=== PATIENT | male | born 1965 | race Caucasian/White ===

== ENCOUNTER 2023-06-19 12:49 | Day surgery (SDC) | payer OTHER ==
[~2023-06-19] VITALS: Ht 175.3 cm; Wt 93.2 kg
[2023-06-19 13:09] VITALS: BP 142/92
--- NOTE | 2023-06-19 14:30 | NUR ---
06/19/23 1430 Sheets,Consuelo 1420 PT ARRIVED TO PACU ON 2L VIA NC, PT WAKES EASILY ANS DENIES PAIN. PT IS ENCOURAGED TO PASS GAS NEEDED. PT EASLY FALLS BACK TO SLEEP AND SNORING NOTED. RESP EVEN AND UNLABORED.
[2023-06-19 14:59] VITALS: BP 135/93
--- NOTE | 2023-06-21 09:47 | OR ---
[facility] [address] [place], [place] [address] Signed DATE OF OPERATION: 06/19/2023 SURGEON: Oral Valenzuela MD PREOPERATIVE DIAGNOSIS: Colon screening. POSTOPERATIVE DIAGNOSES: 1. Sigmoid diverticulosis. 2. Small polyp rectosigmoid (excised). PROCEDURE: Total colonoscopy to cecum with cold morcellation polypectomy x1. ANESTHESIA: Intravenous sedation fentanyl 100 mcg and Versed 5 mg. INDICATION: This 58-year-old white man is a patient of ALIS Virk. He is referred for screening colonoscopy. He has no symptoms of bleeding, diarrhea or constipation. He has no known family history of colon cancer. He was admitted at this time to undergo colonoscopy for screening. He understands the risk of bleeding, infection, and perforation. FINDINGS: The prep was good. Complete colonoscopy was undertaken of the cecum without question. Had numerous diverticula of the sigmoid and left colon. A small rectosigmoid polyp, which was excised with cold morcellation technique. There were no other findings of concern. PROCEDURE IN DETAIL: The patient was brought to the endoscopy suite and placed in lateral decubitus position given intravenous sedation to the point of slurred speech and nystagmus. Digital rectal examination was normal. An Olympus video colonoscope was passed in the rectum and manipulated throughout the colon ultimately intubating the cecum itself. The ileocecal valve and appendiceal orifice were normal. The scope was withdrawn from that point. Examination showed no sign of abnormality into the left colon where diverticula were once again noted. This was also true in the sigmoid. In the rectosigmoid was a small polyp, possibly Electronically Signed By: ORAL VALENZUELA MD 06/21/23 0947 PATIENT NAME: ILYA CONTE OPERATIVE REPORT DATE OF : 69 REPORT #: [id number] PHYSICIAN: ORAL VALENZUELA MD PCP: ZOHRA QUINTANA REPORT IS CONFIDENTIAL AND NOT TO BE RELEASED WITHOUT AUTHORIZATION [facility] [address] [place] [id number] Signed adenomatous. This was excised with cold morcellation technique. Further withdrawal allowed for retroflexed view of the rectum, which was normal. Scope was removed. The patient was taken to recovery room in good condition. CONCLUDING DIAGNOSES: 1. Small polyp x1 in rectosigmoid. 2. Diverticulosis. PLAN: Recommend repeat colonoscopy in three years, sooner if clinically indicated. Recommend high-fiber diet as well. MD SANGITA Lynch/ZEE /[id number] cc: ALIS Virk Copies: ZOHRA QUINTANA ~ Electronically Signed By: ORAL VALENZUELA MD 06/21/23 0947 PATIENT NAME: ILYA CONTE OPERATIVE REPORT DATE OF : 69 REPORT #: [id number] PHYSICIAN: ORAL VALENZUELA MD PCP: ZOHRA QUINTANA REPORT IS CONFIDENTIAL AND NOT TO BE RELEASED WITHOUT AUTHORIZATION
--- NOTE | 2023-06-22 14:47 | PATH ---
[facility] [address] [facility] [place] [address] Signed SPECIMEN(S): A RECTOSIGMOID POLYP SPECIMEN SOURCE: A. RECTOSIGMOID POLYP CLINICAL HISTORY: Hx: Initial screening colonoscopy. Post: Polyp x 1, diverticulosis. FINAL PATHOLOGIC DIAGNOSIS: Rectosigmoid polyp: - Hyperplastic polyp (one fragment). JVR:sm:C2NR MICROSCOPIC EXAMINATION: Histologic sections of all submitted blocks are examined by light microscopy. These findings, together with the gross examination, support the pathologic diagnosis. GROSS DESCRIPTION: The specimen, labeled and designated "Addison, rectosigmoid polyp," is received in formalin and consists of one escamilla soft tissue fragment, 0.2 cm. Entirely submitted in (A1). JS (under the direct supervision of a pathologist) The Gross Description was prepared using a voice recognition system. The report was reviewed for accuracy; however, sound-alike word errors, addition and/or deletions may occur. If there is any question about this report, please contact Client Services. PERFORMING LABORATORY: Technical component was performed by [facility], [address] [place] [id number] (CLIA# [id number]). Professional interpretation was performed by [facility], [address] [place] [id number] (CLIA#: [id number]). Diagnostician: Darion Soliz MD Pathologist Electronically Signed 06/22/2023 Copies: PATIENT NAME: ILYA CONTE PATHOLOGY DATE OF : 69 REPORT #: [id number] PHYSICIAN: JUDITH PATHOLOGY PCP: ZOHRA QUINTANA REPORT IS CONFIDENTIAL AND NOT TO BE RELEASED WITHOUT AUTHORIZATION [address] [address] Signed ~ PATIENT NAME: ILYA CONTE PATHOLOGY DATE OF : 69 REPORT #: [id number] PHYSICIAN: JUDITH PATHOLOGY PCP: ZOHRA QUINTANA REPORT IS CONFIDENTIAL AND NOT TO BE RELEASED WITHOUT AUTHORIZATION
== END 2023-06-19 15:06 | disposition home or self-care (01) ==
LOC: OPS 12:49 → DS 12:52 → OPS 14:00
PROVIDERS: ATTEND Surgery
PROC: 0DBN8ZZ Excision of Sigmoid Colon, Via Natural or Artificial Opening Endoscopic (ICD-10-PCS; principal; 2023-06-19 14:00)
DX: Z12.11 Encounter for screening for malignant neoplasm of colon (principal); Z80.52 Family history of malignant neoplasm of bladder; K57.30 Diverticulosis of large intestine without perforation or abscess without bleeding; K63.5 Polyp of colon
CPT/HCPCS: 99153; G0500; J2250; J3010; J7121